=== PATIENT | male | born 1980 | race Caucasian/White ===

== ENCOUNTER → 2018-07-15 | Outpatient (CLI) | payer OTHER | LOC: COL.RAD 10:28 | DX: M51.17 Intervertebral disc disorders with radiculopathy, lumbosacral region (principal); M48.061 Spinal stenosis, lumbar region without neurogenic claudication ==

== ENCOUNTER 2021-03-17 12:51 | Emergency (ER) | payer OTHER ==
[~2021-03-17] VITALS: Ht 167.6 cm; Wt 90.9 kg
[2021-03-17] MEDS ORDERED: AMOXICILLIN 8751 TAB PO (13:30)
[2021-03-17 13:49] VITALS: BP 133/86; PULSE 61; TEMP 98.4
== END 2021-03-17 13:49 | disposition home or self-care (01) ==
LOC: COL.ER 12:51
DX: S71.112A Laceration without foreign body, left thigh, initial encounter (principal); W31.2XXA Contact with powered woodworking and forming machines, initial encounter